=== PATIENT | female | born 1995 | race Two or more races ===

== ENCOUNTER 2024-05-11 11:41 | Emergency (ER) | payer MEDICAID, SELFPAY ==
[2024-05-11 12:16] VITALS: BP 111/77; PULSE 74; RESP 18; TEMP 37.2; O2SAT 96; BMI 37.3
--- NOTE | 2024-05-11 12:18 | PD.EDBACK ---
ED Back Injury Pain RME/HPI General Chief Complaint: Back Pain/Injury Stated Complaint: R) BACK PAIN RADIATING TO ABD Time Seen by Provider: 05/11/24 12:09 Arrival date/time: 05/11/24 11:41 28 year old female present to emergency room with c/o of right flank/back radiated to abdominal for 1 week. hx of kidney stone LOCATION: abd/flank SEVERITY: Symptoms are described as being severe with limitations on activities of daily living QUALITY: Symptoms are described as being cramping CONTEXT: The patient is unable to identify any inciting events. DURATION/TIMING: The symptoms started approximately 7 day ago and have been waxing/waning but always present without ever completely resolving. ASSOCIATED SYMPTOMS: dysuria, urgency,frequency MODIFYING FACTORS: The patient is unable to identify any alleviating or aggravating symptoms. PERTINENT ROS: no fevers, no anorexia, no nausea or vomiting, no diarrhea, no ripping or tearing sensations, no syncope or presyncopal symptoms, denies trauma, denies genital pain REVIEW OF SYSTEMS: See History of Present Illness - with the exception of those mentioned in the history of present illness, all other systems reviewed and reported as negative GENERAL: In general the patient is awake, interactive, in an emergency department gurney. HEAD/EYES/EARS/NOSE/THROAT: normo-cephalic, atraumatic, mucus membranes are moist, anicteric, palpebral conjunctiva is pink, trachea is midline. CARDIOVASCULAR: regular rate and regular rhythm, no murmurs, heart sounds are not distant, strong pulses in all four extremities that are equal and symmetric bilateral upper and lower extremities, normal capillary refill. CHEST/PULMONARY: normal chest rise and fall, good air movement, clear to auscultation bilaterally, normal inspiratory to expiratory ratios without evidence of respiratory distress. NECK: No midline/Paraspinal tenderness, no step off ROM/Strenght intact No Kernig and bruzinski sign. No trauma ABDOMEN: soft, not tender, no masses appreciated BACK: right flank tenderness, no cva tenderness normal range of motion without pain. NEUROLOGICAL: cranio-facial features are symmetric, moves all four extremities equally without obvious limitations or weakness. EXTREMITY: no tenderness to palpation over the long bones or large joints of the bilateral upper and lower extremities, no joint swelling, no joint erythema, no signs of trauma, no unilateral leg swelling and no peripheral edema. SKIN: warm, dry, well-perfused, no jaundice, no rash, no telangiectasias or petechia. PSYCH: calm, cooperative, no evidence of psychosis or agitation Related Data Allergies Allergy/AdvReac Type Severity Reaction Status Date / Time No Known Allergies Allergy Verified 05/11/24 11:44 Course Course Course Narrative: Patient?s symptoms not typical for emergent causes of abdominal pain such as, but not limited to, appendicitis, abdominal aortic aneurysm, surgical biliary disease, pancreatitis, SBO, mesenteric ischemia, serious intra-abdominal bacterial illness. Presentation also not typical of gynecologic emergencies such as?TOA, Ovarian Torsion, PID. Not Ectopic. Doubt atypical ACS. Pt tolerating PO. Disposition: Patient will be discharged with strict return precautions and follow up with primary MD within 12-24 hours for further evaluation. Patient understands that this still may have an early presentation of an emergent medical condition such as appendicitis that will require a recheck. Quality Measures none Orders Category Date Time Status CT abdomen pelvis wo con Stat Exams 05/11/24 12:33 Completed US pelvic complete Stat Exams 05/11/24 15:13 Completed CBC Stat Lab 05/11/24 12:24 Completed CMP [Comprehensive Metabolic Panel] Stat Lab 05/11/24 12:24 Completed HCG,Qualitative Serum Stat Lab 05/11/24 12:24 Completed Lipase Stat Lab 05/11/24 12:24 Completed UA [Urinalysis] Stat Lab 05/11/24 11:30 Completed Urine Culture Stat Lab 05/11/24 11:30 Received Ketorolac Inj [Toradol Inj] Med 05/11/24 12:59 Discontinued 30 mg IM X1 ONE Reevaluation(s) Reevaluation #1: pt is feeling better Vital Signs Vital signs: Vital Signs Temperature 99.0 F 05/11/24 12:16 Pulse Rate 74 05/11/24 12:16 Respiratory Rate 18 05/11/24 12:16 Blood Pressure 111/77 05/11/24 12:16 Pulse Oximetry (%) 96 05/11/24 12:16 Oxygen Delivery Method Room Air 05/11/24 12:16 Back Pain / Injury Patient data External records reviewed:: [facility] previous records Clinical information provided by:: patient Social determinants that could affect healthcare access:: none Patient has the following chronic illnesses:: n/a How is presenting disease/condition affected by chronic disease/condition?: no chronic disease Evaluation data The following diagnostics were reviewed and interpreted by me:: lab results and radiology exam(s) Lab and/or radiology exams considered but not ordered:: n/a Interpretation Summary: ct: IMPRESSION: 6 mm fat-containing umbilical hernia Normal appendix Mildly prominent left ovary, recommend pelvic sonography follow-up US: negative cbc/cmp wnl urine + rbc hx of kidney stone Medications / Prescriptions Medications or Prescriptions considered but not ordered:: na Medication administrations:: Medication Administration History Discontinued Medications Ketorolac Tromethamine (Ketorolac Inj 60 Mg/2 Ml Vial) 30 mg IM X1 ONE Stop: 05/11/24 13:00 Last Admin: 05/11/24 14:14 Dose: 30 mg Documented By: OA as state above Consultations Consultation(s) initiated? (list below): No Diagnosis Differential diagnosis back pain/injury: lumbar radiculopathy, sciatica, strain of lumbar region, renal colic and other (UTI, gallstone) Most likely diagnosis given after review of the tests above:: abdominal pain Admission Indicated Admission indicated?: not indicated Admission Request Was there a request for admission?: No Disposition Plan Disposition Plan: Discharge Discharge Attestation Discharge Attestation: The patient and all family members were given an opportunity to ask questions and understood the discharge instructions. Discharge instructions specifically effects, indications for sooner follow up or return to the emergency department, and the expected course of current diagnosis. Patient condition: Stable Discharge Plan Plan Patient Disposition: HOME (Self Care) Health Concerns: Follow with PMD as directed Take tylenol or motrin as need Return to ED if sx worsen Prescriptions/Referrals Referrals: Corona Brunson MD [Primary Care Provider] - In 1 week Problem List Clinical Impression: Abdominal pain Patient/Caregiver Discharge Instructions Education Materials: Abdominal Pain Print Language: Mongolian Stand Alone Forms: Jaelyn Award Info., Patient Portal Info Letter
--- NOTE | 2024-05-11 12:33 | XR_ITS ---
Examination: CT abdomen and pelvis without contrast. Coronal 3-D reconstructions. Sagittal 2-D reconstructions. Date and time of exam:May 11, 2024 1434 hours INDICATIONS: Lower abdominal pain beginning one year ago CTDI: vol (mGy): 10.1 DLP: (mGycm): 523 Technique: Axial images of the abdomen have been obtained, 3 mm slice thickness Intravenous contrast material has not been administered. Low dose protocols were performed. One or more of the following dose reduction techniques were used; automated exposure control, adjustment of the mA and/or KV according to patient size, use of iterative reconstruction technique. Findings: No focal liver or splenic lesion No gallstones No pancreatic or adrenal mass No renal or ureteral calculi, no hydronephrosis Aorta normal size 6 mm fat-containing umbilical hernia Normal appendix No bowel obstruction No diverticulitis Prominent left ovary Anteverted uterus Bladder intact Intact osseous structures IMPRESSION: 6 mm fat-containing umbilical hernia Normal appendix Mildly prominent left ovary, recommend pelvic sonography follow-up
[2024-05-11 12:37] LABS: Basophils % (Auto) 0 % (0-2.5); Eosinophils # (Auto) 0.1 Thou/mm3 (0.0-0.5); Eosinophils % (Auto) 1 % (0-10); Hematocrit 43.2 % (36.0-46.0); Hemoglobin 14.9 g/dL (12.0-16.0); Immature Granulocytes % (Auto) 0 % (0-0); Immature Granulocytes Auto 0.04 Thou/mm3 (0.00-0.00); Lymphocytes # (Auto) 2.9 Thou/mm3 (1.0-4.8); Lymphocytes % (Auto) 30 % (10-50); Mean Corpuscular HGB Conc 34.5 g/dl (31.0-37.0); Mean Corpuscular Hemoglobin 29.5 pg (25.0-35.0); Mean Corpuscular Volume 86 fL (80-100); Monocytes # (Auto) 0.8 Thou/mm3 (0.0-0.8); Monocytes % (Auto) 8 % (0-12); Neutrophils # (Auto) 5.9 Thou/mm3 (1.8-7.7); Neutrophils % (Auto) 61 % (37-80); Nucleated Red Blood Cell % 0 /100 WBC (0); Platelet Count 306 Thou/mm3 (140-440); RDW Standard Deviation 37.8 fL (36.4-46.3); Red Blood Count 5.05 Miln/mm3 (4.00-5.20); White Blood Count 9.7 Thou/mm3 (3.6-11.0)
[2024-05-11 13:00] LABS: Collection Type, Urine Voided
[2024-05-11 13:04] LABS: HCG,Qualitative Serum Negative
[2024-05-11 13:06] LABS: Alanine Aminotransferase 16 U/L (10-49); Albumin, Serum 4.6 gm/dL (3.5-5.0); Albumin/Globulin Ratio 1.6 (1.2-2.2); Alkaline Phosphatase 72 U/L (46-116); Anion Gap 7 (7-16); Aspartate Amino Transferase 26 U/L (0-34); BUN/Creatinine Ratio 14 Ratio (12-20); Bilirubin,Total 0.8 mg/dL (0.3-1.2); Blood Urea Nitrogen 10 mg/dL (9-23); Calcium 9.3 mg/dL (8.3-10.6); Calcium (Corrected) 9.3 mg/dL (8.5-10.1); Carbon Dioxide 28.7 mMol/L (20.0-31.0); Chloride 103 mMol/L (98-107); Creatinine (Component) 0.7 mg/dL (0.6-1.3); Estimated Creatinine Clearance 112.4 mL/min (>60); Globulin 2.8 gm/dL (2.3-3.5); Glucose 94 mg/dL (74-106); Lipase 63 U/L (12-53); Osmolality,Calculated 276 (275-295); Potassium 4.5 mMol/L (3.4-5.1); Sodium 139 mMol/L (136-145); Total Protein 7.4 gm/dL (5.7-8.2); eGFR > 60 See Note
[2024-05-11 13:12] LABS: Bacteria,Urine Rare; Bilirubin,Urine Negative (Negative); Blood,Urine 3+ (Negative); Clarity,Urine Turbid (Clear/Hazy); Color,Urine Yellow (Lt Yel-Yel); Glucose, Urine Negative (Negative); Ketones,Urine Negative (Negative); Leukocyte Esterase,Urine Negative (Negative); Nitrite,Urine Negative (Negative); PH,Urine 6.5 (5.0-7.0); Protein,Urine Trace (Neg - Trace); RBC,Urine 662 /hpf (0-3); Specific Gravity,Urine 1.028 (1.001-1.035); Squamous Epithelial Cell,Urine 6 /hpf (0-5); Urobilinogen,Urine Negative mg/dL (0.0-1.0); WBC,Urine 4 /hpf (0-5)
[2024-05-11] MEDS: KETOROLAC INJ 60 MG/2 ML VIAL 30 MG IM (14:14)
--- NOTE | 2024-05-11 15:13 | XR_ITS ---
Examination: Pelvic ultrasound, transabdominal, complete Technique: Transabdominal ultrasound of the pelvis performed using grayscale imaging Date and time of exam: May 11, 2024 1604 hours INDICATIONS: Lower pelvic pain beginning 2 days ago FINDINGS: Uterus 7.1 cm endometrial stripe 0.5 cm No uterine mass or intrauterine gestation Right ovary 3.5 cm arterial flow follicular cysts Left ovary 3.1 cm arterial flow follicular cysts IMPRESSION: Negative study
== END 2024-05-11 16:52 | disposition home or self-care (01) ==
PROVIDERS: Physician Assistant; Emergency Provider Emergency Medicine; PCP Family Medicine
DX: M54.9 Dorsalgia, unspecified (principal)
CPT/HCPCS: 36415; 74176; 76856; 80053; 81001; 83690; 84703; 85025; 87077; 87086; 87186; 96372; 99284; J1885